=== PATIENT | female | born 1995 | race Two or more races ===

== ENCOUNTER → 2023-10-22 | Outpatient (CLI) | payer OTHER, SELFPAY ==
[2023-10-22 18:08] LABS: HEMATOCRIT 41.9 % (36.0-47.0); MEAN CORPUSCULAR HGB CONC 33.4 g/dl (32.0-36.5); MEAN CORPUSCULAR VOLUME 89.7 fl (80.0-96.0); PLATELET COUNT, AUTOMATED 283 10^3/uL (150-450); RED BLOOD COUNT 4.67 10^6/uL (4.00-5.40); WHITE BLOOD COUNT 9.8 10^3/uL (4.0-10.0)
[2023-10-22 18:53] LABS: GC DNA AMPLIFICATION NEGATIVE (NEGATIVE)
[2023-10-22 19:11] LABS: HIV 1&2 SCREEN NEGATIVE (NEGATIVE)
[2023-10-22 19:20] LABS: HEPATITIS C VIRUS ABY INDEX < 0.02 INDEX (<0.8)
== END ==
LOC: M PLALAB 14:34
PROVIDERS: ATTEND Nurse Practitioner Women's Health
DX: Z36.89 Encounter for other specified antenatal screening (principal); Z3A.13 13 weeks gestation of pregnancy

== ENCOUNTER → 2023-12-24 | Outpatient (CLI) | payer OTHER | LOC: M RAD 13:14 | PROVIDERS: ATTEND Obstetrics & Gynecology | DX: Z34.92 Encounter for supervision of normal pregnancy, unspecified, second trimester (principal) ==

== ENCOUNTER → 2023-12-24 | Outpatient (CLI) | payer OTHER ==
[2023-12-24 14:02] LABS: HEMATOCRIT 36.3 % (36.0-47.0); MEAN CORPUSCULAR HEMOGLOBIN 30.8 pg (27.0-33.0); MEAN CORPUSCULAR HGB CONC 33.1 g/dl (32.0-36.5); MEAN CORPUSCULAR VOLUME 93.3 fl (80.0-96.0); PLATELET COUNT, AUTOMATED 219 10^3/uL (150-450); RED BLOOD COUNT 3.89 10^6/uL (4.00-5.40)
[2023-12-24 14:19] LABS: TOTAL PROTEIN,RANDOM URINE 45.2 MG/DL (0.0-14.0)
[2023-12-24 14:27] LABS: ALBUMIN 2.6 G/DL (3.2-5.2); ALKALINE PHOSPHATASE 70 U/L (46-116); ALT/SGPT < 9 U/L (7.0-40); AST/SGOT < 8 U/L (<34); BILIRUBIN,TOTAL 0.3 MG/DL (0.3-1.2); BLOOD UREA NITROGEN 5 MG/DL (9-23); CALCIUM LEVEL 9.1 MG/DL (8.5-10.1); CARBON DIOXIDE LEVEL 23 MMOL/L (20-31); CHLORIDE LEVEL 105 MMOL/L (98-107); CREATININE FOR GFR 0.52 MG/DL (0.55-1.30); GLOMERULAR FILTRATION RATE > 60.0 (>60); GLUCOSE CHALLENGE TEST 1 HOUR 152 MG/DL (LESS THAN 140); GLUCOSE, FASTING 152 MG/DL (60-100); POTASSIUM SERUM 4.3 MMOL/L (3.5-5.1); SODIUM LEVEL 136 MMOL/L (136-145)
[2023-12-24 14:39] LABS: CREATININE,RANDOM URINE 335.3 MG/DL
[2023-12-24 15:00] LABS: HIV 1&2 SCREEN NEGATIVE (NEGATIVE)
[2023-12-24 15:08] LABS: HEPATITIS C VIRUS ABY INDEX < 0.02 INDEX (<0.8)
[2023-12-28 13:24] LABS: GC DNA AMPLIFICATION NEGATIVE (NEGATIVE)
== END ==
LOC: M PLALAB 10:20
PROVIDERS: ATTEND Obstetrics & Gynecology
DX: Z34.92 Encounter for supervision of normal pregnancy, unspecified, second trimester (principal)

== ENCOUNTER → 2023-12-28 | Outpatient (REF) | payer OTHER | LOC: M SFHCWAGY 14:53 | PROVIDERS: ATTEND Obstetrics & Gynecology | DX: R30.0 Dysuria (principal) ==

== ENCOUNTER → 2024-01-27 | Outpatient (CLI) | payer OTHER | LOC: M LAB 07:28 | PROVIDERS: ATTEND Obstetrics & Gynecology | DX: R73.09 Other abnormal glucose (principal) ==

== ENCOUNTER → 2024-02-18 | Outpatient (CLI) | payer OTHER | LOC: M WHC 12:02 | PROVIDERS: ATTEND Nurse Practitioner Family | DX: O24.410 Gestational diabetes mellitus in pregnancy, diet controlled (principal) ==

== ENCOUNTER → 2024-03-15 | Outpatient (CLI) | payer OTHER ==
[2024-03-15 15:02] LABS: HEMATOCRIT 35.8 % (36.0-47.0); HEMOGLOBIN 11.9 g/dl (12.0-15.5); MEAN CORPUSCULAR HGB CONC 33.2 g/dl (32.0-36.5); MEAN CORPUSCULAR VOLUME 87.3 fl (80.0-96.0); PLATELET COUNT, AUTOMATED 214 10^3/uL (150-450); WHITE BLOOD COUNT 9.4 10^3/uL (4.0-10.0)
[2024-03-15 15:04] LABS: URIC ACID 4.2 MG/DL (3.1-7.8)
[2024-03-15 15:06] LABS: LDH LACTATE DEHYDROGENASE 138 U/L (120-246)
[2024-03-15 15:09] LABS: ALT/SGPT 10 U/L (7.0-40); AST/SGOT 8 U/L (<34); BILIRUBIN,TOTAL 0.3 MG/DL (0.3-1.2); CREATININE FOR GFR 0.52 MG/DL (0.55-1.30); GLOMERULAR FILTRATION RATE > 60.0 (>60)
[2024-03-15 15:29] LABS: TOTAL PROTEIN,RANDOM URINE 28.1 MG/DL (0.0-14.0)
[2024-03-15 15:34] LABS: CREATININE,RANDOM URINE 93.2 MG/DL
== END ==
LOC: M PLALAB 11:56
PROVIDERS: ATTEND Specialist
DX: O13.3 Gestational [pregnancy-induced] hypertension without significant proteinuria, third trimester (principal)

== ENCOUNTER → 2024-03-22 | Outpatient (CLI) | payer OTHER | LOC: M RAD 15:08 | PROVIDERS: ATTEND Nurse Practitioner Family | DX: O24.410 Gestational diabetes mellitus in pregnancy, diet controlled (principal) ==

== ENCOUNTER → 2024-03-25 | Outpatient (REF) | payer OTHER | LOC: M SFHCWAGY 13:00 | PROVIDERS: ATTEND Specialist | DX: O09.33 Supervision of pregnancy with insufficient antenatal care, third trimester (principal); O09.293 Supervision of pregnancy with other poor reproductive or obstetric history, third trimester; O13.3 Gestational [pregnancy-induced] hypertension without significant proteinuria, third trimester; O24.113 Pre-existing type 2 diabetes mellitus, in pregnancy, third trimester; E11.9 Type 2 diabetes mellitus without complications; O34.219 Maternal care for unspecified type scar from previous cesarean delivery; Z3A.35 35 weeks gestation of pregnancy; Z86.19 Personal history of other infectious and parasitic diseases; Z87.891 Personal history of nicotine dependence ==

== ENCOUNTER 2024-04-05 05:24 | Inpatient (IN) | payer OTHER ==
[2024-04-05] VITALS (9 sets, daily range): BP systolic 92–138; BP diastolic 51–69; O2SAT 96–97
[~2024-04-05] VITALS: Ht 160 cm; Wt 105.5 kg
[~2024-04-05 05:24] MED LIST: METF500T13 PO
[2024-04-05] MEDS: LACTATED RINGER'S 1000 ML IV STA (06:00)
[2024-04-05 06:16] LABS: HEMATOCRIT 36.3 % (36.0-47.0); HEMOGLOBIN 12.1 g/dl (12.0-15.5); MEAN CORPUSCULAR HGB CONC 33.3 g/dl (32.0-36.5); MEAN CORPUSCULAR VOLUME 87.1 fl (80.0-96.0); PLATELET COUNT, AUTOMATED 205 10^3/uL (150-450); RED BLOOD COUNT 4.17 10^6/uL (4.00-5.40); WHITE BLOOD COUNT 9.8 10^3/uL (4.0-10.0)
[2024-04-05] MEDS ORDERED: HOME MED LIST COMPLETE! XX SCH (06:30)
[2024-04-05] MEDS: LR 1,000 ML IV SCH ×2 (06:45→13:40)
[2024-04-05] MEDS: BICITRA 30ML SOLN UDC PO ONE (07:14)
[2024-04-05] MEDS: ceFAZolin SOD 2 GM in IV 1 EA IV ONE (07:14)
[2024-04-05] MEDS ORDERED: ePHEDrine SULFATE 25 MG/5 ML(5MG/ML) SYRINGE As Ordered ONE (07:27)
[2024-04-05] MEDS ORDERED: PHENYLephrine 500MCG 5ML (100MCG/ML) SYRINGE As Ordered ONE (07:27)
[2024-04-05] MEDS ORDERED: ONDANSETRON 4MG 2ML VIAL As Ordered ONE (07:28)
[2024-04-05] MEDS ORDERED: MORPHINE PRES-FREE INJ 10 MG/10 ML VIAL As Ordered ONE (07:29)
[2024-04-05] MEDS ORDERED: OXYTOCIN 30UNITS IN 0.9% NaCl 500ML IV BAG As Ordered ONE (07:29)
[2024-04-05 07:32] LABS: HEPATITIS C VIRUS ABY INDEX < 0.02 INDEX (<0.8)
[2024-04-05] MEDS ORDERED: ACETAMINOPHEN 1000MG/100ML IV BAG As Ordered ONE (07:46)
[2024-04-05] MEDS ORDERED: KETOROLAC 60MG 2ML VIAL As Ordered ONE (08:05)
[2024-04-05 08:19] LABS: CORD GAS ABE A -3.9; CORD GAS HCO3 A 24.3 MMOL/L; CORD GAS O2 SAT A 54.7 %; CORD GAS PH A 7.247 UNITS; CORD GAS SBC A 20.3 MMOL/L
[2024-04-05 08:22] LABS: CORD GAS ABE V -0.4; CORD GAS HCO3 V 25.1 MMOL/L; CORD GAS O2 SAT V 76.7 %; CORD GAS PCO2 V 44.4 mmHg; CORD GAS PH V 7.37 UNITS; CORD GAS PO2 V 30.6 mmHg; CORD GAS SBC V 23.6 MMOL/L; CORD GAS TCO2 V 26.5 MMOL/L
[2024-04-05] MEDS ORDERED: RHOGAM 300MCG (1500IU) INJ IM SCH (08:30)
[2024-04-05] MEDS ORDERED: SIMETHICONE 80MG CHEW TAB PO PRN (08:30)
[2024-04-05] MEDS ORDERED: PERCOCET 5MG/325MG TAB PO PRN (08:30)
[2024-04-05] MEDS ORDERED: KETOROLAC 30 MG/ML 1ML VIAL IV SCH (08:30)
[2024-04-05] MEDS: KETOROLAC 30 MG/ML 1ML VIAL IV SCH (13:41)
[2024-04-05] MEDS: PRENATAL VITAMINS CHEWABLE TABLET PO SCH (14:10)
[2024-04-05] MEDS ORDERED: fentaNYL 100 MCG/2 ML INJECTION IV PRN (15:30)
[2024-04-05] MEDS ORDERED: LR 1,000 ML IV SCH (15:30)
[2024-04-05] MEDS ORDERED: oxyCODONE 5MG TAB PO PRN (15:30)
[2024-04-05] MEDS ORDERED: BICITRA 30ML SOLN UDC PO ONE (15:30)
[2024-04-05] MEDS ORDERED: ONDANSETRON 4MG 2ML VIAL IV PRN (15:30)
[2024-04-05] MEDS ORDERED: MEPERIDINE 25 MG/ML 1ML VIAL IV PRN (15:30)
[2024-04-06] VITALS (7 sets, daily range): BP systolic 96–129; BP diastolic 52–58; TEMP 97.9; O2SAT 95–98
[2024-04-06 07:07] LABS: HEMATOCRIT 31.4 % (36.0-47.0); HEMOGLOBIN 10.3 g/dl (12.0-15.5); MEAN CORPUSCULAR HEMOGLOBIN 28.7 pg (27.0-33.0); MEAN CORPUSCULAR HGB CONC 32.8 g/dl (32.0-36.5); MEAN CORPUSCULAR VOLUME 87.5 fl (80.0-96.0); PLATELET COUNT, AUTOMATED 198 10^3/uL (150-450); RED BLOOD COUNT 3.59 10^6/uL (4.00-5.40)
[2024-04-06] MEDS: IBUPROFEN 800 MG TAB PO SCH (09:08)
[2024-04-06] MEDS: PERCOCET 5MG/325MG TAB PO PRN (16:30)
[2024-04-06] MEDS: MEASLES,MUMPS,RUBELLA VACCINE INJ (MMR-II) SC.IMMUN ONE (18:33)
[2024-04-06] MEDS: DOCUSATE SODIUM 100MG CAPSULE PO PRN (19:11)
[2024-04-07 02:00] VITALS: BP 126/58; O2SAT 96
[2024-04-07 06:00] VITALS: BP 128/59; O2SAT 96
[2024-04-07] MEDS ORDERED: IBUP80TA PO (07:52)
[2024-04-07] MEDS ORDERED: COLA100C5 PO (07:52)
[2024-04-07] MEDS ORDERED: OXYC1TAB23 PO (07:52)
== END 2024-04-07 13:15 | disposition home or self-care (01) | DRG 788 ==
LOC: M LDI 05:24 → M OBS 10:41
PROVIDERS: ADMIT Specialist; ATTEND Specialist
PROC: 10D00Z1 Extraction of Products of Conception, Low, Open Approach (ICD-10-PCS; principal; 2024-04-05 07:30)
DX: O34.211 Maternal care for low transverse scar from previous cesarean delivery (principal); Z3A.37 37 weeks gestation of pregnancy; O40.3XX0 Polyhydramnios, third trimester, not applicable or unspecified; O24.429 Gestational diabetes mellitus in childbirth, unspecified control; Z37.0 Single live birth

== ENCOUNTER → 2024-07-18 | Outpatient (CLI) | payer OTHER ==
[~2024-07-18] MED LIST changes: +COLA100C5 PO; +IBUP80TA PO; +OXYC1TAB23 PO
[2024-07-18 15:20] LABS: APPEARANCE, URINE CLEAR (CLEAR); BACTERIA, URINE AUTO NEGATIVE (NEGATIVE); BILIRUBIN, URINE AUTO NEGATIVE (NEGATIVE); BLOOD, URINE BLOOD 1+ (NEGATIVE); COLOR, URINE YELLOW (YELLOW); GLUCOSE, URINE (UA) AUTO NEGATIVE (NEGATIVE); KETONE, URINE AUTO NEGATIVE (NEGATIVE); LEUKOCYTE ESTERASE, URINE AUTO NEGATIVE (NEGATIVE); NITRITE, URINE AUTO NEGATIVE (NEGATIVE); PROTEIN, URINE AUTO NEGATIVE (NEGATIVE); RBC, URINE AUTO 0 /HPF (0-3); SPECIFIC GRAVITY URINE AUTO 1.014 (1.002-1.035); SQUAMOUS EPITHELIAL CELL UR AU 1 /HPF (0-6); UROBILINOGEN, URINE AUTO 0.2 mg/dL (0.0-2.0); WBC, URINE AUTO 1 /HPF (0-3)
[2024-07-18 15:24] LABS: THYROID STIMULATING HORMONE 1.431 uIU/ML (0.55-4.78); TOTAL 25(OH) VITAMIN D 19.4 NG/ML (20.0-100.0); TOTAL IRON BINDING CAPACITY 379 UG/DL (250-425)
[2024-07-18 15:25] LABS: ALBUMIN 3.5 G/DL (3.2-5.2); ALKALINE PHOSPHATASE 112 U/L (35-104); ALT/SGPT 27 U/L (7.0-40); AST/SGOT 14 U/L (<34); BILIRUBIN,TOTAL 0.4 MG/DL (0.3-1.2); BLOOD UREA NITROGEN 11 MG/DL (9-23); CARBON DIOXIDE LEVEL 28 MMOL/L (20-31); CHLORIDE LEVEL 105 MMOL/L (98-107); CREATININE FOR GFR 0.56 MG/DL (0.55-1.30); FERRITIN 20.2 NG/ML (7.3-270.7); FOLATE 18.97 NG/ML (>5.4); GLOMERULAR FILTRATION RATE > 90.0 (>60); GLUCOSE, FASTING 72 MG/DL (60-100); IRON (FE) 96 UG/DL (50-170); PERCENT SATURATION 25.3 % (13.2-45.0); POTASSIUM SERUM 4.7 MMOL/L (3.5-5.1); SODIUM LEVEL 143 MMOL/L (136-145)
[2024-07-18 15:27] LABS: BASO # 0.1 10^3/uL (0.0-0.2); BASO % 0.8 % (0.0-1.0); EOS # 0.3 10^3/uL (0.0-0.5); EOS % 3.3 % (0.0-3.0); HEMATOCRIT 45.6 % (36.0-47.0); LYMPH # 3.2 10^3/uL (1.5-5.0); LYMPH % 34.2 % (24.0-44.0); MEAN CORPUSCULAR HEMOGLOBIN 28.5 pg (27.0-33.0); MEAN CORPUSCULAR HGB CONC 32.9 g/dl (32.0-36.5); MEAN CORPUSCULAR VOLUME 86.5 fl (80.0-96.0); MONO # 0.9 10^3/uL (0.0-0.8); MONO % 9.4 % (2.0-8.0); NEUTROPHILS # 4.8 10^3/uL (1.5-8.5); NEUTROPHILS % 51.9 % (36.0-66.0); PLATELET COUNT, AUTOMATED 315 10^3/uL (150-450); RED BLOOD COUNT 5.27 10^6/uL (4.00-5.40); VITAMIN B12 LEVEL 414 PG/ML (211-911); WHITE BLOOD COUNT 9.3 10^3/uL (4.0-10.0)
[2024-07-18 17:11] LABS: HEMOGLOBIN A1c 5.3 % (4.0-6.0)
== END ==
LOC: M PLALAB 12:56
PROVIDERS: ATTEND Physician Assistant
DX: O24.410 Gestational diabetes mellitus in pregnancy, diet controlled (principal)